=== PATIENT | female | born 1990 | race Caucasian/White ===

== ENCOUNTER 2017-11-02 06:34 | Emergency (ER) | payer SELFPAY ==
[2017-11-02 06:35] VITALS: BP 117/55; PULSE 114; RESP 16; TEMP 36.9; O2SAT 100; BMI 43.1
--- NOTE | 2017-11-02 07:18 | ED.VISSUMM ---
- ER Visit Summary Date of Service: 11/02/17 Chief Complaint: Sore throat History of Present Illness: The patient is a 27 F who sees Baldomero Escalante. She reports that she has a sore throat that began yesterday. The pain is sharp. Is 5 out of 10 when she swallows. Is 2 out of 10 at rest. She denies any fever or chills. She reports that she has had a cough for the past month. Is productive clear sputum. Physical Examination: Vitals: Stable. Afebrile. General: Well-nourished and well-developed. Head: Normocephalic atraumatic. HEENT: Pharyngeal erythema with bilateral tonsillar enlargement and exudate. No peritonsillar abscess. There is but palatal petechiae. She has tender anterior cervical leg adenopathy bilaterally. Cardiovascular: Regular rate and rhythm. No murmurs. Respiratory: No respiratory distress. Clear to auscultation bilaterally. Abdominal: Soft, nontender, nondistended, normal bowel sounds. No guarding, rebound, or peritoneal signs. Back: Nontender. Extremities: Nontender, no edema. Skin: Normal color, no rash. Neurologic: Alert and oriented ?3. Cranial nerves II through XII are intact. Normal strength and sensation. Psych: Normal affect. Emergency Department Course and Treatment: Patient's exam is consistent with strep pharyngitis. I discussed the possibility of a rapid strep test. She would like to be treated regardless of the results of this. Because of this she was just treated empirically. She is given amoxicillin, naproxen, and dexamethasone orally. She is resting comfortably. Treatment Plan: She will be discharged on amoxicillin and naproxen. Instructed to follow-up with Baldomero Escalante in 1 week for repeat exam. Return to the emergency department for any worsening symptoms. Disposition: To home in improved and stable condition. Impression: 1. Pharyngitis, presumed strep. This note was generated with [employer] dictation software. It may contain incorrect words, spelling, and punctuation that were not noted in review of the chart prior to signing ED Disposition - Plan for ED Patient: Chief Complaint: Sore Throat Instructions: ED Strep Pharyngitis Poss Prescriptions: Naproxen [Naprosyn] 500 mg PO BID #20 tablet Amoxicillin 500 mg PO TID #30 tablet Referrals: Lance Escalante PA [Primary Care Provider] - 1 Week if not improving
[2017-11-02] MEDS: Naproxen 250 MG Tablet 500 MG PO (07:45)
[2017-11-02] MEDS: AMOXICILLIN 500 MG CAPSULE PO (07:45)
== END 2017-11-02 07:45 | disposition home or self-care (01) ==
LOC: ED 07:04
PROVIDERS: Emergency Provider Emergency Medicine; Family Provider Physician Assistant; PCP Physician Assistant
DX: J02.9 Acute pharyngitis, unspecified (principal)
CPT/HCPCS: 99283

== ENCOUNTER 2018-06-27 21:07 | Emergency (ER) | payer SELFPAY ==
[2018-06-27 21:08] VITALS: BP 121/73; PULSE 99; RESP 17; TEMP 36.6; O2SAT 97; BMI 44.7
[2018-06-27 22:59] LABS: Mucous, Urine 0 SEEN /hpf (<or=2+)
[2018-06-27 23:03] LABS: Color, Urine Yellow (Yellow); Glucose, Dipstick Normal (Normal); Ketone-Dipstick Negative (Negative); Leukocyte Esterase-Dipstick 500 /ul (Negative); Nitrite-Dipstick Negative (Negative); Occult Blood-Urine 250 /ul (Negative); Protein-Dipstick 100 mg/dl (Negative); Urine Bilirubin Dipstick Negative (Negative); Urine Clarity Sl. Cloudy (Clear); Urine Urobilinogen Normal (Normal)
[2018-06-27 23:10] LABS: White Blood Cells >100 SEEN /hpf (0-5)
[2018-06-27 23:11] LABS: Red Blood Cells-Urine > 100 SEEN /hpf (0-5); Squamous Epithelial Cells - UA 10-25 SEEN /hpf (5-10)
[2018-06-27 23:12] LABS: Bacteria 1+ /hpf (None Seen)
[2018-06-28 00:18] LABS: Bacteria 0 SEEN /hpf (None Seen); Mucous, Urine 0 SEEN /hpf (<or=2+)
[2018-06-28 00:24] LABS: Color, Urine Yellow (Yellow); Glucose, Dipstick Normal (Normal); Ketone-Dipstick Negative (Negative); Leukocyte Esterase-Dipstick 500 /ul (Negative); Nitrite-Dipstick Negative (Negative); Occult Blood-Urine 250 /ul (Negative); Protein-Dipstick 100 mg/dl (Negative); Urine Bilirubin Dipstick Negative (Negative); Urine Clarity Cloudy (Clear); Urine Urobilinogen Normal (Normal); Urine pH 6.5 (5.0 - 8.0)
[2018-06-28 00:57] LABS: Red Blood Cells-Urine 25-50 SEEN /hpf (0-5); Squamous Epithelial Cells - UA 10-25 SEEN /hpf (5-10); White Blood Cells 50-100 SEEN /hpf (0-5)
--- NOTE | 2018-06-28 01:27 | ED.VISSUMM ---
- ER Visit Summary Date of Service: 06/28/18 Chief Complaint: Dysuria, frequency, urgency and hematuria since yesterday History of Present Illness: The patient is a 28 F who presents with urinary symptoms. She states she was treated for a urinary tract infection 1 month ago. She was treated with cephalexin. She states she is sexually active. She is sexually active with one partner. She denies history of STD. She denies vaginal discharge or dyspareunia. She denies fever, chills night sweats. She denies low back pain or flank pain. She does complain of discomfort in the suprapubic region. Please read written note for complete detail Physical Examination: Vital signs noted and unremarkable. BMI 44.8. HEENT is unremarkable. Heart is regular without murmur, gallop or rub. S1 and S2 are normal. Lungs are clear to auscultation with good movement of air bilaterally. Abdomen is remarkable for suprapubic discomfort. There is no CVA tenderness noted. Test Results: Initial UA was contaminated with 25-50 epithelial cells. Second UA was obtained by straight cath and is contaminated as well. Nursing staff informed me that the prep her several times. Emergency Department Course and Treatment: Will obtain UA to confirm urinary tract infection. Since first and second specimen are contaminated raises concerned if she has a bladder infection or not. Her symptoms are consistent. Will treat with Macrobid. If no improvement will need follow-up. Treatment Plan: Macrobid 100 mg twice daily and Pyridium. She received her first dose of Macrobid and was administered Azo in the department prior to discharge Disposition: Discharge to home Impression: Dysuria This note was generated with [employer] dictation software. It may contain incorrect words, spelling, and punctuation that were not noted in review of the chart prior to signing ED Disposition - Plan for ED Patient: Disposition: Home or Assisted Living Chief Complaint: Complaint Instructions: ED Dysuria Uncertain Cause Prescriptions: Nitrofurantoin Macrocrystals [Macrobid] 100 mg PO Q12 #10 capsule Phenazopyridine HCl [Pyridium] 200 mg PO TID #10 tablet Referrals: Lance Escalante PA [Primary Care Provider] - 3-5 Days if not improving Additional Instructions: Your prescription was electronically transmitted to [facility] pharmacy; your preferred pharmacy.
[2018-06-28] MEDS: Phenazopyridine 95 MG Tablet 190 MG PO (01:39)
[2018-06-28] MEDS: Nitrofurantoin Macrocrystals 100 MG Capsule PO (01:39)
[2018-06-28 01:42] VITALS: BP 111/74; PULSE 91; RESP 17; O2SAT 100
--- NOTE | 2018-06-28 01:42 | ED.RN ---
DISCHARGE INSTRUCTIONS GIVEN TO AND REVIEWED WITH PATIENT, PATIENT DENIES QUESTIONS OR CONCERNS AND VOICES UNDERSTANDING OF DISCHARGE INSTRUCTIONS. PT AMBULATES OUT OF ROOM WITHOUT DIFFICULTY.
== END 2018-06-28 01:43 | disposition home or self-care (01) ==
PROVIDERS: Emergency Provider Emergency Medicine; Family Provider Physician Assistant; PCP Physician Assistant
DX: N30.91 Cystitis, unspecified with hematuria (principal); R30.0 Dysuria; E66.9 Obesity, unspecified; Z68.41 Body mass index [BMI] 40.0-44.9, adult; Z87.440 Personal history of urinary (tract) infections
CPT/HCPCS: 81001; 99284; P9612

== ENCOUNTER → 2018-07-26 12:37 | Outpatient (CLI) | payer OTHER, SELFPAY ==
[2018-07-26 13:12] LABS: Absolute Lymphocyte Count 2.79 X10^3/ul (0.83-4.51); Absolute Neutrophil Count 8.5 X10^3/uL (2.0-7.7); Basophil# 0.02 X10^3/uL; Basophil% 0.2 % (0-1); Eosinophil# 0.05 X10^3/uL; Eosinophils% 0.4 % (0-5); Lymphocyte # 2.79 X10^3/ul (4.0); Lymphocyte % 23.8 % (19-41); Mean Corp Hgb Conc 32.4 g/gl (32-36); Mean Corpuscular Hgb 24.8 pg (27.0-32.0); Mean Corpuscular Volume 76.6 fL (81-99); Mean Platelet Vol. 9.1 fl (6.2-12.0); Monocyte# 0.36 X10^3/uL; Monocyte% 3.1 % (0-10); Neutrophil # 8.47 X10^3/uL (2.7-7.7); Neutrophil % 72.2 % (47-70); Platelet Count 316 K/mm3 (150-450); RBC Distribution Width CV 13.5 % (11.6-14.6); RBC Distribution Width SD 37.1 fl (35.1-43.9); Red Blood Count 4.83 M/mm3 (4.2-5.4); White Blood Count 11.7 K/mm3 (4.4-11.0)
[2018-07-26 13:16] LABS: POSITIVE COUNT NO; POSITIVE DIFFERENTIAL NO; POSITIVE MORPHOLOGY NO
[2018-07-26 13:29] LABS: Glucose Challenge Gest 1H 50g 161 mg/dL (70-140)
[2018-07-26 14:24] LABS: HIV - WCH Non-Reactive (Nonreactive); Rubella IgG 106.2 IU/mL
[2018-07-26 19:56] LABS: Chlamydia Trachomatis by PCR Negative (Negative); Neisserai gonorrhoeae by PCR Negative (Negative); Probe Check PASS; Sample Adequacy Control PASS; Specimen Processing Control PASS
[2018-07-27 13:39] LABS: HEPATITIS B SURFACE AG Negative (Negative)
[2018-07-29 13:20] LABS: HPV Reflexed? NOT INDICATED
[2018-07-30 03:50] LABS: Rapid Plasmin Reagin (RPR) NONREACTIVE (NONREACTIVE)
== END ==
PROVIDERS: Family Provider Physician Assistant; PCP Physician Assistant; Referring Provider Nurse Practitioner Women's Health; Visit Provider Nurse Practitioner Women's Health
DX: O09.90 Supervision of high risk pregnancy, unspecified, unspecified trimester (principal); Z12.4 Encounter for screening for malignant neoplasm of cervix; Z3A.00 Weeks of gestation of pregnancy not specified
CPT/HCPCS: 36415; 82950; 85025; 86592; 86703; 86762; 86850; 86900; 87086; 87088; 87340; 87491; 87591; 87624; 88175; G0145

== ENCOUNTER → 2018-07-30 09:58 | Outpatient (CLI) | payer OTHER, SELFPAY ==
[2018-07-30 11:21] LABS: Glucose GTT-Gestation. Fasting 84 mg/dL (<105)
[2018-07-30 12:18] LABS: Glucose GTT-Gestational 1 Hr 175 mg/dL (<190)
[2018-07-30 12:59] LABS: Glucose GTT-Gestational 2 Hr 125 mg/dL (<165)
[2018-07-30 13:55] LABS: Glucose GTT-Gestational 3 Hr 101 L (<145)
== END ==
LOC: LAB 10:00
PROVIDERS: Nurse Practitioner Women's Health; Family Provider Physician Assistant; PCP Physician Assistant; Referring Provider Obstetrics & Gynecology; Visit Provider Obstetrics & Gynecology
DX: O09.90 Supervision of high risk pregnancy, unspecified, unspecified trimester (principal); O99.810 Abnormal glucose complicating pregnancy; Z3A.00 Weeks of gestation of pregnancy not specified
CPT/HCPCS: 36415; 82951; 82952; 86850

== ENCOUNTER → 2018-08-07 14:46 | Outpatient (CLI) | payer OTHER, SELFPAY ==
[2018-08-06 17:24] VITALS: BMI 44.1
[2018-08-07 14:49] LABS: Mucous, Urine 0 SEEN /hpf (<or=2+); Red Blood Cells-Urine 0 SEEN /hpf (0-5)
[2018-08-07 14:57] LABS: Color, Urine Yellow (Yellow); Glucose, Dipstick Normal (Normal); Ketone-Dipstick Negative (Negative); Leukocyte Esterase-Dipstick 500 /ul (Negative); Nitrite-Dipstick Positive (Negative); Occult Blood-Urine 250 /ul (Negative); Protein-Dipstick 100 mg/dl (Negative); Specific Gravity, Urine 1.025 (1.002-1.030); Urine Bilirubin Dipstick Negative (Negative); Urine Clarity Clear (Clear); Urine Urobilinogen Normal (Normal)
[2018-08-07 15:23] LABS: Bacteria 1+ /hpf (None Seen); Squamous Epithelial Cells - UA 0-5 SEEN /hpf (5-10); White Blood Cells 50-100 SEEN /hpf (0-5)
== END ==
PROVIDERS: Family Provider Physician Assistant; PCP Physician Assistant; Referring Provider Physician Assistant Surgical; Visit Provider Physician Assistant Surgical
DX: R30.0 Dysuria (principal)
CPT/HCPCS: 81001; 87077; 87086; 87088; 87186

== ENCOUNTER 2019-01-06 20:54 | Emergency (ER) | payer BC, SELFPAY ==
[2018-08-06 17:24] VITALS: BMI 44.1
[2019-01-06 20:56] VITALS: BP 109/67; PULSE 90; RESP 16; TEMP 36.7; O2SAT 100; BMI 45.1
--- NOTE | 2019-01-06 21:17 | ED.DEP ---
ED Disposition - Plan for ED Patient: Instructions: Vaginal Infection: Yeast (Candidiasis) Prescriptions: Terconazole [Terazol 7] 45 gm VG QHS #1 cream.appl Referrals: Lance Escalante PA [Primary Care Provider] - Octavia Hall MD [STAFF PHYSICIAN] - 5-7 Days
--- NOTE | 2019-01-06 21:19 | ED.VISSUMM ---
- ER Visit Summary Date of Service: 01/06/19 Chief Complaint: [Yeast infection] History of Present Illness: The patient is a 28 F [presents with complaint of symptoms of a yeast infection. Patient is having vaginal discharge x2 days that is creamy and white. Patient having itching and burning sensation. Patient is 31 weeks . Patient is never had a yeast infection before. She denies any fever or recent illness. She denies vaginal bleeding. She denies abdominal pain. Does not have any concerns about STDs as she is monogamous. Patient has had care. Patient will attempt to deliver via as she is had 3 C-sections in the past.] Physical Examination: [HEENT-PERRLA, EOMI. Cranial nerves II through XII grossly intact. TMs clear. Mucous membranes moist. No adenopathy. Cardiovascular-regular rate and rhythm without murmur or ectopy Lungs-clear to auscultation, chest wall stable without crepitus or subcu emphysema Abdomen-normoactive bowel sounds, soft, nontender, no rebound or rigidity, no peritoneal signs. Extremities-intact ?4, normal range of motion, normal pulses, atraumatic] Test Results: [None indicated] Emergency Department Course and Treatment: [Discussed case with Dr. Raudel Montalvo who asked that we start patient on Terazol 7] Treatment Plan: [We will treat with Terazol 7 cream for 7 days ] Disposition: [Discharged home in stable condition ] Impression: [Vaginal candidiasis] This note was generated with [employer] dictation software. It may contain incorrect words, spelling, and punctuation that were not noted in review of the chart prior to signing ED Disposition - Plan for ED Patient: Instructions: Vaginal Infection: Yeast (Candidiasis) Prescriptions: Terconazole [Terazol 7] 45 gm VG QHS #1 cream.appl Referrals: Octavia Hall MD [STAFF PHYSICIAN] - 5-7 Days Lance sEcalante PA [Primary Care Provider] -
== END 2019-01-06 21:31 | disposition home or self-care (01) ==
PROVIDERS: Emergency Provider Emergency Medicine; Family Provider Physician Assistant; PCP Physician Assistant
DX: O98.813 Other maternal infectious and parasitic diseases complicating pregnancy, third trimester (principal); B37.3 Candidiasis of vulva and vagina; Z3A.31 31 weeks gestation of pregnancy
CPT/HCPCS: 99282

== ENCOUNTER 2021-10-10 11:26 | Day surgery (SDC) | payer MEDICAID, SELFPAY ==
[2021-10-09 12:34] LABS: Hematocrit 42.4 % (37-47); Hemoglobin 13.3 g/dL (12.0-15.0); Mean Corp Hgb Conc 31.4 g/dL (32-36); Mean Corpuscular Hgb 25.3 pg (27.0-32.0); Mean Corpuscular Volume 80.6 fL (81-99); Mean Platelet Vol. 9.7 fl (6.2-12.0); Platelet Count 286 K/mm3 (150-450); RBC Distribution Width CV 13.1 % (11.6-14.6); RBC Distribution Width SD 38.2 fl (35.1-43.9); Red Blood Count 5.26 M/mm3 (4.2-5.4)
[2021-10-09 12:39] LABS: Internal QC Validated? YES +Cl - CLEAR BKGD; Pregnancy, Urine Negative Negative
[2021-10-10] VITALS (8 sets, daily range): BP systolic 88–107; BP diastolic 39–85; PULSE 63–72; RESP 16–18; TEMP 36.3–36.6; O2SAT 93–98; BMI 38.9
[2021-10-10] MEDS: Lactated Ringers 1,000 ML 15 ML IV (12:12)
--- NOTE | 2021-10-10 13:10 | EMB_PTH ---
PATIENT: SUMMER BULL LOC: [facility] [place] U#:[id number] AGE/SX: 31/F ROOM: RE10/10/[address]: Dr. Eugenie Lopez DO : 1990 BED: DIS: 10/10/2021 SPEC #: [id number] RECD: 10/10/21 15:29 STATUS: VINEET ERIKA #: [id number] JAVID: 10/10/21 13:[address]: Eugenie Lopez DEPT: SURGICAL PATHOLOGY RECD BY: Lisa Saucedo ENTERED: 10/11/21 11:33 SP TYPE: ENDOLance BX/C KATELYN DR: SAMAN Byrd Tissues: Endometrium, NOS Procedures: Surgery Specimen Level IV HEADER OPERATION: Hysteroscopy, dilation and curettage, Mirena IUD placement PRE-OP DIAGNOSIS: Menorrhagia, cervical stenosis TISSUE SUBMITTED: Endometrial curettings MICROSCOPIC DIAGNOSIS Endometrium, biopsy: Transition endometrium with minimal disorder. AM:arash 10/14/2021 MICROSCOPIC DESCRIPTION Slides are reviewed. GROSS DESCRIPTION Received in fixative is one container labeled with the patient's name and designated endometrial curettings. The specimen consists of multiple irregular fragments of dark renner soft tissue that in aggregate measure 3 x 2 x 0.2 cm. The specimen is totally submitted in one cassette. / AM:arash 10/11/2021 TC:5 CPT: 47646
--- NOTE | 2021-10-10 14:11 | DCINST_ITS ---
Discharge Instructions Diet Discharge Diet: No restrictions Activity Discharge Activity: May Drive (more than 24 hours after surgery) Return to work on:: 10/14/21 May resume sexual activity in: 1-2 weeks Weight Bearing Status: Weight bearing as tolerated Lifting Restrictions: No restrictions Additional Activity Instructions:: No intercourse, tampons, hot tubs, tub baths, pools for 1 week Dressing / Incision Call your doctor if you observe: Fever of 101 or Higher, Coldness, Increased Pain, Numbness or Tingling, Change in Color, Inability to urinate, Inability to have a bowel movement, Using more than 1 pad per hour, Shortness of breath, Dizziness, Fainting spells, Swelling in the ankles, Chest pain, Increased palpitations (irregular heartbeat), Calf discomfort and Uncontrolled pain Follow Up Care Please Follow Up With: Jessica When: 1 week and then 4-6 weeks for IUD check Test Results: Test results from this visit will be discussed in further detail at your follow-up appointment, if applicable. Discharge Plan Admission Primary Reason for Your Visit: surgery Attending Provider: Eugenie Lopez Primary Care Provider: Larissa Burns NP Instructions Patient Instructions: Dilation and Curettage Discharge Orders/Prescriptions Prescriptions: Continued buspirone 5 mg Tablet 5 mg PO BID RF: 0 phentermine [Adipex-P] 37.5 mg Tablet 37.5 mg PO DAILY RF: 0 sertraline [Zoloft] 50 mg Tablet 50 mg PO DAILY RF: 0 Referrals / Follow Up: Larissa Burns NP, RATTLING MACHINE TENDER-C [Primary Care Provider] - Disposition Disposition (needs filled in before D/C Order can be placed): Home, Self Care
--- NOTE | 2021-10-10 14:44 | PCM.OPRPT ---
Problems Associated Problem List Diagnoses (1) Menorrhagia: (2) Cervical stenosis (uterine cervix): Report of Operation Date of Procedure: 10/10/21 Pre-Operative Diagnosis: Menorrhagia, desires IUD, cervical stenosis Post-Operative Diagnosis: As above Surgery/Procedure Performed:: Hysteroscopy, D&C, Mirena IUD placement Description of Surgical Findings:: Uterus sounded to 10 cm. Normal appearing uterine cavity and bilateral tubal ostia visualized. Surgeon: Jessica Type of Anesthesia: MAC Special Medications: None Specimen's removed: Endometrial curettings Drains: None Estimated Blood Loss (mL): < 50 cc Fluids Replaced: See anesthesia record Description of Procedure: The patient was taken to the operating room where MAC anesthesia was found to be adequate. She was prepped and draped in the usual sterile fashion in dorsal position with yellowfin stirrups. A weighted speculum was placed in the vagina to expose the cervix. The anterior lip the cervix was grasped with a single-tooth tenaculum. The cervix was stenotic and serially dilated to accommodate the hysteroscope. The hysteroscope was advanced to the fundus of the uterus and distended with normal saline. A normal-appearing uterine cavity was visualized with normal bilateral tubal ostia. The hysteroscope was then removed. A sharp curettage was performed for a moderate amount of endometrial tissue. The endometrial curettings were sent to pathology for review. Uterus sounded to 10 cm. The Mirena device was placed in usual sterile fashion and the strings were cut to 2 cm in length. All instruments were removed from the vagina. Vaginal sweep was performed. Bleeding was hemostatic. Instrument and sponge counts were correct. Patient was taken recovery room in stable condition. Grafts/Implants Used: Mirena IUD Procedure Start Time: 14:32 Procedure Stop Time: 14:46 Complications None Admit VTE Documentation VTE Mechan Device Prophylaxis: SCD's
== END 2021-10-10 23:59 | disposition home or self-care (01) ==
LOC: SDC 11:28 → AC 11:31
PROVIDERS: Anesthesiology; PCP Registered Nurse; Referring Provider Obstetrics & Gynecology; Visit Provider Obstetrics & Gynecology
PROC: 0UDB8ZZ Extraction of Endometrium, Via Natural or Artificial Opening Endoscopic (ICD-10-PCS; CPT 58558; principal; 2021-10-10 13:00)
DX: N92.0 Excessive and frequent menstruation with regular cycle (principal); F41.9 Anxiety disorder, unspecified; Z79.899 Other long term (current) drug therapy; M48.02 Spinal stenosis, cervical region; Z30.430 Encounter for insertion of intrauterine contraceptive device
CPT/HCPCS: 58558; 58300; 00952; 36415; 81025; 85027; 86850; 86900; 86901; 87426; 88305; C9803; J7120; J2405

== ENCOUNTER 2021-12-21 14:23 | Emergency (ER) | payer MEDICAID, SELFPAY ==
[2021-12-21 14:24] VITALS: BP 133/87; PULSE 93; RESP 18; TEMP 35.8; O2SAT 98; BMI 39.1
--- NOTE | 2021-12-21 14:48 | EX.ED.DYSGE1 ---
HPI History of Present Illness Chief Complaint: Abd Pain Narrative Narrative: 31-year-old female with history of heavy periods presents the emergency department with right-sided flank pain, lower belly pain. Patient states that she started her menstrual cycle 3 days ago, patient states the cramping has been worse than usual. Patient states that this cramping goes around her back down to her thighs. She does have an established DISTRIBUTION ENGINEERING TECHNOLOGIST which she has seen for this, patient has had a vaginal ultrasound 1 month ago that showed a cyst on the left side. Patient states that this pain came on insidiously, denies any nausea or vomiting. Patient states that she does use Midol however this is not effective for her symptoms. Patient denies any dizziness, fever chills nausea or vomiting PFSH PFSH Medical History Anxiety Non-smoker Home Medications buspirone 5 mg PO TID 10/04/21 [History Last Taken 10/10/21 07:00] phentermine [Adipex-P] 37.5 mg PO DAILY 10/04/21 [History Last Taken Unknown] sertraline [Zoloft] 100 mg PO DAILY 10/04/21 [History Last Taken 10/10/21 07:00] doxycycline monohydrate 100 mg PO BID 12/21/21 [History Last Taken Unknown] ibuprofen 800 mg PO Q8H PRN #20 tab 12/21/21 [Rx Last Taken Unknown] Allergy/AdvReac Type Severity Reaction Status Date / Time No Known Allergies Allergy Verified 12/21/21 14:25 Family History (Updated 08/06/18 @ 17:26 by Parisalrry Hernadez) Mother , age 51 Diabetes Enlarged heart Other Heart disease Hypertension Kidney disease Surgical History H/O section Social History (Updated 08/06/18 @ 17:54 by Samuel MUSTAFA, PA) Smoking Status: Never smoker alcohol intake: never ROS ROS ED ROS Narrative Constitutional: Negative for fever, chills, weight loss or gain, weakness Eyes: Negative for vision loss, vision change, double vision ENT: Negative for any hearing changes, ringing in the ears, discharge, pain Nose: Negative for any congestion, runny nose, sinus pain, allergies Throat: Negative for any sore throat, swelling, voice changes, Cardiovascular: Negative for any chest pain, tightness, palpitations, racing heartbeat Respiratory: Negative for any cough, sputum production, hemoptysis, shortness of breath, shortness of breath on exertion, Gastrointestinal: Negative for any nausea, vomiting, diarrhea, constipation, blood in stool, blood in vomit. Positive for abdominal pain, cramping : Negative for any urinary frequency, incontinence, dysuria, retention, blood in urine. Positive for currently on menstrual cycle Muscle skeletal: Negative for any muscle joint pain, stiffness, myalgias, arthralgias, neck pain, back pain Neurological: Negative for any headache, dizziness, syncope, numbness or tingling Skin: Negative for any rashes, lumps, itching, abrasions, lacerations Psychiatric: Negative for any depression, anxiety, stress, suicidal ideation, homicidal ideation Hematologic: Negative for any easy bruising, excessive bruising, easy bleeding Allergies: Negative for any eczema, hives, rash EXAM Physical Exam Const Vital Signs: 12/21/21 14:24 Temperature 96.4 F L Temperature Source Temporal Pulse Rate 93 Respiratory Rate 18 Blood Pressure 133/87 H Blood Pressure Mean 102 Pulse Ox 98 Oxygen Delivery Method Room Air Positive well nourished and well developed General Appearance ED: well developed HEENT Negative for tenderness Eyes PERRL and EOMs intact bilaterally Neck no lymphadenopathy and supple Chest Wall inspection of chest normal and palpation of chest normal Resp normal respiratory effort and clear to auscultation bilaterally Cardio regular rate, regular rhythm and no murmurs GI normal to inspection, nondistended, normoactive bowel sounds, non-tender and non-distended Auscultation: normoactive bowel sounds Palpation: soft Back/Spine no CVA tenderness Extremity normal to inspection Neuro oriented x3 and CN's II-XII intact bilaterally Sensorium / Orientation: alert Motor Exam: strength 5/5 throughout Psych mental status grossly normal Skin no rashes or lesions noted MDM MDM MDM Narrative Medical decision making narrative: Patient appears well, patient appears nontoxic, vital signs are stable. Patient presents the emerge department for 3 days of generalized abdominal cramping secondary to her menstrual cycle. Patient did receive a basic work-up, patient's CBC shows a leukocytosis with a white blood count 15.2 however this is kind of baseline for the patient she always seem to have a white blood count. Patient's BMP was unremarkable, patient is not . Patient's urinalysis does show blood however this is consistent with a menstrual cycle. Patient did have relief with IV Toradol. Patient be given ibuprofen 800 for severe pain instructed to follow-up outpatient. Patient does have a established DISTRIBUTION ENGINEERING TECHNOLOGIST she will follow up with. She is instructed to return for any worsening abdominal pain, fever chills nausea vomiting. Patient stable for discharge per Lab Data Attestation: I reviewed the patient's lab results. Labs: Laboratory Results - last 24 hr 12/21/21 12/21/21 12/21/21 14:56 14:56 14:56 WBC 15.2 H RBC 5.04 Hgb 12.9 Hct 40.3 MCV 80.0 L MCH 25.6 L MCHC 32.0 RDW Std Deviation 36.8 RDW Coeff of Azeb 13.0 Plt Count 288 MPV 9.3 Immature Gran % (Auto) 0.300 Neut % (Auto) 76.1 H Lymph % (Auto) 19.2 [place] % (Auto) 3.7 Eos % (Auto) 0.4 Baso % (Auto) 0.3 Absolute Neuts (auto) 11.5 H Absolute Lymphs (auto) 2.91 Nucleated RBC % 0 Sodium 138 Potassium 3.7 Chloride 108 H Carbon Dioxide 24.0 Anion Gap 6 BUN 10 Creatinine 0.56 Estim Creat Clear Calc 111.85 Est GFR (MDRD) Af Amer 163 Est GFR (MDRD) Non-Af 135 BUN/Creatinine Ratio 17.8 Glucose 105 Calcium 9.0 Serum , Qual NEGATIVE Urine Color Urine Clarity Urine pH Ur Specific Delta Urine Protein Urine Glucose (UA) Urine Ketones Urine Occult Blood Urine Nitrite Urine Bilirubin Urine Urobilinogen Ur Leukocyte Esterase Urine RBC Urine WBC Ur Squamous Epith Cells Urine Bacteria Urine Mucus 12/21/21 15:10 WBC RBC Hgb Hct MCV MCH MCHC RDW Std Deviation RDW Coeff of Azeb Plt Count MPV Immature Gran % (Auto) Neut % (Auto) Lymph % (Auto) [place] % (Auto) Eos % (Auto) Baso % (Auto) Absolute Neuts (auto) Absolute Lymphs (auto) Nucleated RBC % Sodium Potassium Chloride Carbon Dioxide Anion Gap BUN Creatinine Estim Creat Clear Calc Est GFR (MDRD) Af Amer Est GFR (MDRD) Non-Af BUN/Creatinine Ratio Glucose Calcium Serum , Qual Urine Color Yellow Urine Clarity Sl. Cloudy Urine pH 6.5 Ur Specific Delta 1.015 Urine Protein 30 H Urine Glucose (UA) Normal Urine Ketones Negative Urine Occult Blood 250 H Urine Nitrite Negative Urine Bilirubin Negative Urine Urobilinogen Normal Ur Leukocyte Esterase 25 H Urine RBC 10-25 SEEN Urine WBC 0-5 SEEN Ur Squamous Epith Cells 0-5 SEEN Urine Bacteria RARE Urine Mucus 0 SEEN Discharge Plan Triage Chief Complaint: Abd Pain ED Midlevel Provider: Ray Contreras ED Provider: Manjinder De Los Santos Dx/Rx/DC Orders Clinical Impression: Menorrhagia Instructions: ED Dysfunctional Uterine Bleeding, ED Heavy Menstrual Bleeding Prescriptions: New ibuprofen 800 mg tablet 800 mg PO Q8H PRN (Reason: pain) Qty: 20 RF: 0 No Action buspirone 5 mg Tablet 5 mg PO TID RF: 0 phentermine [Adipex-P] 37.5 mg Tablet 37.5 mg PO DAILY RF: 0 sertraline [Zoloft] 50 mg Tablet 100 mg PO DAILY RF: 0 doxycycline monohydrate 100 mg capsule 100 mg PO BID RF: 0 Primary Care Provider: Larissa Burns NP Referrals: Larissa Burns NP, KNOCKDOWN WORKER-C [Primary Care Provider] - Activity Restrictions/Additional Instructions: Please use the ibuprofen as needed, please follow-up with your DISTRIBUTION ENGINEERING TECHNOLOGIST, please return here for any worsening symptoms Print Language: Romansh Disposition Disposition: Home, Self Care
[2021-12-21] MEDS: Ketorolac 15 MG/ML Vial IV (15:09)
[2021-12-21 15:15] LABS: Absolute Lymphocyte Count 2.91 X10^3/uL (0.83-4.51); Absolute Neutrophil Count 11.5 X10^3/uL (2.0-7.7); Basophil# 0.05 X10^3/uL; Basophil% 0.3 % (0-1); Eosinophil# 0.06 X10^3/uL; Eosinophils% 0.4 % (0-5); Hematocrit 40.3 % (37-47); Hemoglobin 12.9 g/dL (12.0-15.0); Lymphocyte # 2.91 X10^3/ul (0.83-4.51); Lymphocyte % 19.2 % (19-41); Mean Corpuscular Hgb 25.6 pg (27.0-32.0); Mean Platelet Vol. 9.3 fl (6.2-12.0); Monocyte# 0.56 X10^3/uL; Monocyte% 3.7 % (0-10); NRBC Flagged by Analyzer 0 % (0-5); Neutrophil # 11.52 X10^3/uL (2.7-7.7); Neutrophil % 76.1 % (47-70); Platelet Count 288 K/mm3 (150-450); RBC Distribution Width SD 36.8 fl (35.1-43.9); Red Blood Count 5.04 M/mm3 (4.2-5.4); White Blood Count 15.2 K/mm3 (4.4-11.0)
[2021-12-21 15:16] LABS: Mucous, Urine 0 SEEN /hpf (<or=2+)
[2021-12-21 15:29] LABS: Color, Urine Yellow (Yellow); Glucose, Dipstick Normal (Normal); Ketone-Dipstick Negative (Negative); Leukocyte Esterase-Dipstick 25 /ul (Negative); Nitrite-Dipstick Negative (Negative); Occult Blood-Urine 250 /ul (Negative); Protein-Dipstick 30 mg/dl (Negative); Specific Gravity, Urine 1.015 (1.002-1.030); Urine Bilirubin Dipstick Negative (Negative); Urine Clarity Sl. Cloudy (Clear); Urine Urobilinogen Normal (Normal); Urine pH 6.5 (5.0 - 8.0)
[2021-12-21 15:39] LABS: White Blood Cells 0-5 SEEN /hpf (0-5)
[2021-12-21 15:39] LABS: Internal QC Validated? YES +Cl - CLEAR BKGD; Pregnancy, Serum, hCG Quali. NEGATIVE Negative
[2021-12-21 15:40] LABS: Bacteria RARE /hpf (None Seen); Red Blood Cells-Urine 10-25 SEEN /hpf (0-5); Squamous Epithelial Cells - UA 0-5 SEEN /hpf (5-10)
[2021-12-21 15:40] LABS: Anion Gap 6 (5-15); BUN 10 mg/dL (7-18); BUN/Creat Ratio 17.8 RATIO (10-20); Chloride 108 mmol/L (98-107); Creatinine, Serum 0.56 mg/dL (0.55-1.02); EST Glomerular Filtration Rate 135 mL/min (>60); Est Glom Filt Rate - Afr Amer 163 mL/min (>60); Estimated Creatinine Clearance 111.85 ml/min; Glucose 105 mg/dL (74-106); Potassium 3.7 mmol/L (3.5-5.1); Sodium Level 138 mmol/L (136-145)
[2021-12-21 16:27] VITALS: PULSE 78; RESP 16; O2SAT 97
== END 2021-12-21 16:28 | disposition home or self-care (01) ==
PROVIDERS: Nurse Practitioner; Emergency Provider Emergency Medicine; PCP Registered Nurse; Visit Provider Emergency Medicine
DX: N92.0 Excessive and frequent menstruation with regular cycle (principal); R10.84 Generalized abdominal pain; F41.9 Anxiety disorder, unspecified; Z79.899 Other long term (current) drug therapy
CPT/HCPCS: 80048; 81001; 84703; 85025; 96374; 99283; A4216

== ENCOUNTER 2022-07-10 23:58 | Emergency (ER) | payer BC, MEDICAID, SELFPAY ==
[2022-07-10 23:59] VITALS: BP 111/67; PULSE 80; RESP 18; TEMP 36.7; O2SAT 98; BMI 40.6
[2022-07-11] MEDS: predniSONE 20 MG Tablet 60 MG PO (00:41)
--- NOTE | 2022-07-11 01:54 | EDS_ITS ---
HPI History of Present Illness Chief Complaint: Sore Throat Narrative Narrative: Patient is a 32-year-old female with past medical history of anxiety. She states that at work there has been a few people out secondary to COVID. She states yesterday she has noticed a sore throat and today she has had some congestion and headache. She states she is concerned she may have developed COVID or possible strep throat because of the symptoms and therefore comes in for evaluation. PFSH PFSH Medical History Anxiety Non-smoker Home Medications buspirone 5 mg tablet 5 mg PO TID 10/04/21 [History Last Taken 10/10/21 07:00] phentermine 37.5 mg tablet (Adipex-P) 37.5 mg PO DAILY 10/04/21 [History Last Taken Unknown] azelastine 137 mcg (0.1 %) nasal spray aerosol 2 spray intranasal BID #30 mL 07/11/22 [Rx Last Taken Unknown] omeprazole 40 mg capsule,delayed release 40 mg PO DAILY 07/11/22 [History Last Taken Unknown] prednisone 20 mg tablet 40 mg PO DAILY 5 days #10 tabs 07/11/22 [Rx Last Taken Unknown] Allergy/AdvReac Type Severity Reaction Status Date / Time bupivacaine Allergy Rash Verified 07/11/22 00:03 bupropion [From Wellbutrin] Allergy Rash Verified 07/11/22 00:02 Family History (Updated 08/06/18 @ 17:26 by Paris Hernadez) Mother , age 51 Diabetes Enlarged heart Other Heart disease Hypertension Kidney disease Surgical History H/O section Social History (Updated 08/06/18 @ 17:54 by Samuel MUSTAFA, PA) Smoking Status: Never smoker alcohol intake: never ROS ROS ED Constitutional Constitutional ED: Denies chills or fever(s) ENT ENT ED: Reports rhinorrhea and sore throat Cardiovascular Cardiovascular: Denies chest pain Respiratory/Chest Respiratory/Chest: Denies cough or dyspnea Gastrointestinal Gastrointestinal: Denies abdominal pain, diarrhea, nausea or vomiting Genitourinary Genitourinary ED: Denies dysuria Musculoskeletal Musculoskeletal: Denies myalgias Integumentary Denies rash Neurologic Neurologic: Reports headache(s) Psychiatric Psychiatric: Reports anxiety Hematologic/Lymphatic Hematologic/Lymphatic: Denies easy bleeding or easy bruising EXAM Physical Exam Const Vital Signs: 07/10/22 23:59 Temperature 98.0 F Temperature Source Temporal Pulse Rate 80 Respiratory Rate 18 Blood Pressure 111/67 Blood Pressure Mean 81 Pulse Ox 98 Oxygen Delivery Method Room Air Positive well nourished and well developed General Appearance ED: well developed HEENT Reports moist mucous membranes HEENT Narrative: Bilateral TMs are retracted left greater than right without secondary changes to suggest infection. Nasal mucosa is hyperemic and boggy with enlarged inferior nasal turbinate. There is cobblestoning in the posterior pharynx consistent with sinus drainage but no tonsil hypertrophy no exudates trismus change in voice or difficulty with secretions. Eyes PERRL and EOMs intact bilaterally Neck supple Neck Narrative: Positive anterior cervical lymphadenopathy Resp normal respiratory effort and clear to auscultation bilaterally Cardio regular rate and regular rhythm Extremity normal to inspection Neuro oriented x3 and CN's II-XII intact bilaterally Sensorium / Orientation: alert Psych mental status grossly normal Skin no rashes or lesions noted MDM MDM MDM Narrative Medical decision making narrative: Patient presented to the ER afebrile. Her symptoms are consistent with viral illness and with reported COVID exposure at work there is concern for this so COVID influenza and strep were obtained. As she did not have signs of systemic infection or peritonsillar abscess I felt no need for further work-up. Patient is strep swab was negative as well as her COVID and influenza swab indicating she has another viral infection causing her symptoms. She is not in respiratory distress she is not hypoxic and she does not have signs of peritonsillar abscess so therefore she be given symptomatic care and discharged home. Discharge Plan Triage Chief Complaint: Sore Throat ED Provider: Darryl Fuller Dx/Rx/DC Orders Clinical Impression: Upper respiratory infection, Pharyngitis Instructions: ED Pharyngitis, Viral, ED URI, Viral, No Abx (Adult) Prescriptions: New azelastine 137 mcg (0.1 %) aerosol,spray 2 spray intranasal BID Qty: 30 0RF Rx Instructions: administer into each nostril prednisone 20 mg tablet 40 mg PO DAILY 5 Days Qty: 10 0RF No Action buspirone 5 mg Tablet 5 mg PO TID phentermine [Adipex-P] 37.5 mg Tablet 37.5 mg PO DAILY omeprazole 40 mg Capsule,Delayed Release(Dr/Ec) 40 mg PO DAILY Stand Alone Forms: ED Work / School Excuse Primary Care Provider: Larissa Burns NP Referrals: Larissa Burns NP, PROCESS MACHINE OPERATOR-C [Primary Care Provider] - Disposition Disposition: Home, Self Care Discharge Date/Time: 07/11/22 02:04
== END 2022-07-11 02:04 | disposition home or self-care (01) ==
PROVIDERS: Emergency Provider Emergency Medicine; PCP Registered Nurse; Visit Provider Emergency Medicine
DX: J06.9 Acute upper respiratory infection, unspecified (principal); F41.9 Anxiety disorder, unspecified; Z79.52 Long term (current) use of systemic steroids; Z20.822 Contact with and (suspected) exposure to COVID-19
CPT/HCPCS: 87428; 87880; 99282

== ENCOUNTER 2023-09-07 09:07 | Emergency (ER) | payer MEDICAID, SELFPAY ==
[2023-09-07 09:08] VITALS: BP 115/96; PULSE 86; RESP 14; TEMP 36.8; O2SAT 98; BMI 44.0
--- NOTE | 2023-09-07 09:15 | RAD_ITS ---
STUDY: X-RAY - LEFT KNEE REASON FOR EXAM: Female, 33 years old. Trauma TECHNIQUE: 4 view(s) of the knee. COMPARISON: None. FINDINGS: Normal visualized distal femur. Normal visualized proximal tibia and fibula. Normal proximal tibiofibular articulation. Normal medial femorotibial compartment. Normal lateral femorotibial compartment. Normal patellofemoral articulation. Soft tissue swelling. RAD/Knee 4 or More Views IMPRESSION: Soft tissue swelling. Electronically Signed: Jose Elias Hall MD at 10:07 EST ,
--- NOTE | 2023-09-07 09:23 | ED.VIS.LOWEX ---
HPI History of Present Illness HPI Narrative: 33-year-old female history of anxiety and depression. Fell to bed about 9:00 last night hitting her left anterior knee on a wooden floor. Complaining of discomfort. No prior history. No prior knee surgery. Denies any other injuries. Chief Complaint: Lower Extremity Injury Informant: patient Occured/Mechanism Mechanism/Context: Yes injury and Yes blunt trauma Onset/Context/Timing Onset: Yesterday Context: Sudden Onset Timing: Continuous Quality of Pain: Dull and Aching Current Severity: Mild Maximum Severity: Mild Associated Symptoms Associated Symptoms: Negative for Parasthesia, Weakness or Loss of Funtion Narrative Narrative: 33-year-old fell to bed last night injuring her left knee versus a wooden floor. Able to walk. Prior similar symptoms: No Recent Illness/Hospitalization: No PFSH PFSH Medical History Anxiety Non-smoker Home Medications buspirone 5 mg tablet 5 mg PO TID 10/04/21 [History Last Taken 10/10/21 07:00] azelastine 137 mcg (0.1 %) nasal spray aerosol 2 spray intranasal BID #30 mL 07/11/22 [Rx Last Taken Unknown] omeprazole 40 mg capsule,delayed release 40 mg PO DAILY 07/11/22 [History Last Taken Unknown] ascorbic acid (vitamin C) 500 mg tablet (Vitamin C With Chelsea Hips) 500 mg PO DAILY 09/07/23 [History Last Taken Unknown] cholecalciferol (vitamin D3) 1,250 mcg (50,000 unit) capsule 1,250 mcg PO DAILY 09/07/23 [History Last Taken Unknown] ferrous sulfate 325 mg (65 mg iron) tablet 325 mg PO DAILY 09/07/23 [History Last Taken Unknown] fluoxetine 40 mg capsule 40 mg PO DAILY 09/07/23 [History Last Taken Unknown] Allergy/AdvReac Type Severity Reaction Status Date / Time bupivacaine Allergy Rash Verified 09/07/23 09:08 bupropion [From Wellbutrin] Allergy Rash Verified 09/07/23 09:08 Family History Mother , age 51 Diabetes Enlarged heart Other Heart disease Hypertension Kidney disease Surgical History H/O section Social History Smoking Status: Never smoker alcohol intake: never ROS ROS ED ROS Narrative Denies recent illness. Review of Systems ROS Unobtainable: Denies due to encephalopathy Constitutional Constitutional ED: Denies chills or fever(s) Eyes Eyes: Denies blurry vision ENT ENT ED: Denies ear pain Cardiovascular Cardiovascular: Denies chest pain or palpitations Respiratory/Chest Respiratory/Chest: Denies cough or dyspnea Gastrointestinal Gastrointestinal: Denies abdominal pain Genitourinary Genitourinary ED: Denies dysuria or hematuria Musculoskeletal Musculoskeletal: Denies arthralgias Integumentary Denies abscess or Abrasions Neurologic Neurologic: Denies headache(s) Psychiatric Psychiatric: Denies anxiety or depression Endocrine Endocrinology: Denies polydipsia or polyphagia Hematologic/Lymphatic Hematologic/Lymphatic: Denies easy bleeding or easy bruising Allergic/Immunologic Allergic/Immunologic ED: Denies mouth swelling or tongue swelling EXAM Physical Exam Narrative Exam Narrative: 33-year-old female vital signs stable afebrile. H EENT exam unremarkable. Nontender. Atraumatic. Pupils round react to light. Neck nontender. Back and spine nontender. Lungs clear equal symmetrical. Heart regular rhythm rate about 80 no murmur. Chest wall and ribs nontender. Abdomen soft nontender. No temperature imaging nontender. 5 and 5 promotional model strength. Normal range of motion. Right lower extremity unremarkable and nontender with normal range of motion. Left knee has mild tenderness. No significant swelling. Tendons and ligaments are intact. Limited extension due to discomfort. Dorsi and plantarflexion intact of the left foot and ankle. Neurologically she is awake and alert with no focal motor deficits. Const Vital Signs: 09/07/23 09:08 Temperature 98.2 F Temperature Source Temporal Pulse Rate 86 Respiratory Rate 14 Blood Pressure 115/96 H Blood Pressure Mean 102 Pulse Ox 98 Oxygen Delivery Method Room Air Positive well nourished and well developed; Negative for cachectic, contractures or unkempt General Appearance ED: well developed and NAD; Negative for unkempt, cachectic or contractures Nutritional Appearance: Negative for cachectic HEENT Reports moist mucous membranes normocephalic and atraumatic; Negative for trauma or tenderness Eyes PERRL General Eye ED: Negative for other Neck full ROM and supple Thyroid: Negative for tender Lymph Lymphatic: Negative for other Chest Wall inspection of chest normal and palpation of chest normal Chest: Negative for other Resp normal respiratory effort, no retractions and clear to auscultation bilaterally Effort and Inspection: Negative for pain with movement Auscultation: Negative for rales, rhonchi or wheezes Cardio regular rate, regular rhythm, S1 normal heart sound, S2 normal heart sound and no murmurs Rate: Negative for bradycardia or tachycardic Rhythm: Negative for abnormal rhythm Bruits: Negative for other GI non-tender, non-distended and no masses Inspection: Negative for abdominal distention Auscultation: normoactive bowel sounds Palpation: soft; Negative for tender or guarding Bladder / Kidney Exam: No other Back/Spine no CVA tenderness General Back: Negative for CVA tenderness Cervical Spine: Negative for cervical spine tenderness Thoracic Spine / Upper Back: Negative for thoracic spinal tenderness Lumbar Spine / Lower Back: Negative for lumbar spinal tenderness Extremity Negative for normal to inspection or full ROM Extremity Narrative: Left knee mild tenderness. Limited extension due to discomfort. Able to do flexion. No gross bony deformity. No effusion. Mild anterior patellar tenderness. Ligaments intact. No effusion. General Extremety ED: Negative for cyanosis or edema General Extremity: Negative for cyanosis or edema Neuro oriented x3, CN's II-XII intact bilaterally and moves all extremities Sensorium / Orientation: alert, oriented to person, oriented to place and oriented to time; Negative for orientation impaired, confused, lethargic or stuporous Motor Exam: strength 5/5 throughout Psych mental status grossly normal Appearance: Negative for unkempt Speech: No other Mood & Affect: Negative for anxious Skin no wounds Lesions: no lesions Rashes: no rashes Trauma: Negative for abrasion or laceration MDM MDM Radiography Diagnostic Testing: Left knee x-ray, 4 views, interpreted by myself shows no acute abnormality. No fracture. No dislocation. No significant effusion. No significant soft tissue swelling. Discharge Plan Triage Chief Complaint: Lower Extremity Injury ED Provider: Manjinder De Los Santos Dx/Rx/DC Orders Clinical Impression: Fall, Contusion of left knee Instructions: ED Soft Tissue Contusion Prescriptions: No Action buspirone 5 mg Tablet 5 mg PO TID phentermine [Adipex-P] 37.5 mg Tablet 37.5 mg PO DAILY omeprazole 40 mg Capsule,Delayed Release(Dr/Ec) 40 mg PO DAILY azelastine 137 mcg (0.1 %) aerosol,spray 2 spray intranasal BID Qty: 30 0RF Rx Instructions: administer into each nostril prednisone 20 mg tablet 40 mg PO DAILY 5 Days Qty: 10 0RF Primary Care Provider: Larissa Burns NP Referrals: Larissa Burns NP, WAREHOUSE TEAM MEMBER-C [Primary Care Provider] - 1 Week if not improving Activity Restrictions/Additional Instructions: Ice your knee to decrease pain and swelling. Motrin for pain and swelling. Tylenol for pain. This should progressively improve if not follow-up to reexamine. Your x-rays were normal. Disposition Disposition: Home, Self Care
== END 2023-09-07 09:50 | disposition home or self-care (01) ==
LOC: ED 09:48
PROVIDERS: Emergency Provider Emergency Medicine; PCP Registered Nurse; Visit Provider Emergency Medicine
DX: S80.02XA Contusion of left knee, initial encounter (principal); F41.9 Anxiety disorder, unspecified; W06.XXXA Fall from bed, initial encounter; Z79.899 Other long term (current) drug therapy
CPT/HCPCS: 73564; 99282

== ENCOUNTER 2023-12-06 10:26 | Emergency (ER) | payer MEDICAID, SELFPAY ==
[2023-12-06 10:28] VITALS: BP 94/60; PULSE 103; RESP 18; TEMP 37.2; O2SAT 98; BMI 37.5
[2023-12-06 10:29] VITALS: PULSE 105
--- NOTE | 2023-12-06 11:00 | EDS_ITS ---
HPI History of Present Illness Chief Complaint: Ear Problem Informant: patient Narrative Narrative: 33-year-old female presenting to the emergency room with the chief complaint of earache and sore throat. Patient notes over the past several days she has developed fevers and rhinorrhea/congestion left ear pain and sore throat. She notes some associated nausea and decreased p.o. intake. Patient notes that she had a gastric sleeve placed in September. She took NyQuil like medicine last night for the fever. She notes some body aches. No diarrhea. Daughter was sick with strep throat about a week ago. She denies any rashes. Patient is concerned with dehydration. [facility] Medical History Anxiety Non-smoker Home Medications buspirone 5 mg tablet 5 mg PO TID 10/04/21 [History Last Taken 10/10/21 07:00] azelastine 137 mcg (0.1 %) nasal spray aerosol 2 spray intranasal BID #30 mL 07/11/22 [Rx Last Taken Unknown] omeprazole 40 mg capsule,delayed release 40 mg PO DAILY 07/11/22 [History Last Taken Unknown] ascorbic acid (vitamin C) 500 mg tablet (Vitamin C With Chelsea Hips) 500 mg PO DAILY 09/07/23 [History Last Taken Unknown] cholecalciferol (vitamin D3) 1,250 mcg (50,000 unit) capsule 1,250 mcg PO DAILY 09/07/23 [History Last Taken Unknown] ferrous sulfate 325 mg (65 mg iron) tablet 325 mg PO DAILY 09/07/23 [History Last Taken Unknown] fluoxetine 40 mg capsule 40 mg PO DAILY 09/07/23 [History Last Taken Unknown] amoxicillin 875 mg-potassium clavulanate 125 mg tablet 1 tab PO BID #20 tabs 12/06/23 [Rx Last Taken Unknown] Allergy/AdvReac Type Severity Reaction Status Date / Time bupivacaine Allergy Rash Verified 12/06/23 10:27 bupropion [From Wellbutrin] Allergy Rash Verified 12/06/23 10:27 Family History Mother , age 51 Diabetes Enlarged heart Other Heart disease Hypertension Kidney disease Surgical History H/O section Social History Smoking Status: Never smoker alcohol intake: never ROS ROS ED ROS Narrative Lightheadedness Constitutional Constitutional ED: Reports chills and fever(s); Denies weight loss Eyes Eyes: Denies change in vision or diplopia ENT ENT ED: Reports ear pain, rhinorrhea and sore throat Cardiovascular Cardiovascular: Denies chest pain, orthopnea, palpitations or racing heartbeat Respiratory/Chest Respiratory/Chest: Reports cough; Denies dyspnea or orthopnea Gastrointestinal Gastrointestinal: Reports nausea; Denies abdominal pain, diarrhea or vomiting Genitourinary Genitourinary ED: Denies dysuria, hematuria or urinary frequency Musculoskeletal Musculoskeletal: Denies arthralgias or myalgias Integumentary Denies abscess or rash Neurologic Neurologic: Denies headache(s) or weakness Psychiatric Psychiatric: Denies anxiety, depression, suicidal ideation or suicidal thoughts Endocrine Endocrinology: Denies polydipsia, polyphagia or polyuria Allergic/Immunologic Allergic/Immunologic ED: Denies mouth swelling, tongue swelling or urticaria EXAM Physical Exam Const Vital Signs: 12/06/23 10:28 12/06/23 10:29 Temperature 99 F Temperature Source Temporal Pulse Rate 103 H 105 H Respiratory Rate 18 Blood Pressure 94/60 Blood Pressure Mean 71 Pulse Ox 98 Oxygen Delivery Method Room Air Positive well nourished and well developed General Appearance ED: well developed HEENT Reports normocephalic, head/scalp atraumatic and moist mucous membranes HEENT Narrative: Right tympanic membrane appears normal. Left tympanic membrane is erythematous with loss of landmarks/bulging. No evidence of perforation. Oropharyngeal exam demonstrates no significant swelling exudate petechiae or erythema. No evidence of retropharyngeal or peritonsillar abscess. No significant anterior or posterior lymphadenopathy. Voice appears normal. Mild turbinate edema with yossi ar rhinorrhea. Eyes PERRL and EOMs intact bilaterally Neck no lymphadenopathy, supple and no JVD Resp normal respiratory effort and clear to auscultation bilaterally Cardio regular rate, regular rhythm and no murmurs Rate: tachycardic GI normal to inspection, nondistended, normoactive bowel sounds and non-tender Palpation: soft Back/Spine no CVA tenderness and normal ROM Extremity normal to inspection General Extremety ED: Negative for edema General Extremity: Negative for edema Neuro oriented x3 and CN's II-XII intact bilaterally Sensorium / Orientation: alert Motor Exam: strength 5/5 throughout Psych mental status grossly normal Mood & Affect: Negative for depressed or tearful Skin no rashes or lesions noted and no wounds MDM MDM MDM Narrative Medical decision making narrative: Patient received IV fluids and Zofran. I spoke with the patient regarding viral testing as well as strep testing. As she is going to be placed on antibiotics for the ear infection we are going to forego strep testing as the same antibiotic will treat both. Viral testing will not change treatment plan and she understands that antibiotic will not affect a viral illness. Patient is clinically looking well. Would recommend continued fever control and oral hydra tion. Will start her on Augmentin. Return if any worsening or concerns. History & Record Review Discussion w/independent historian: Patient Discharge Plan Triage Chief Complaint: Ear Problem ED Provider: Chidi Pugh Dx/Rx/DC Orders Clinical Impression: Acute left otitis media, Acute dehydration, Acute febrile illness Instructions: ED Otitis Media Adult Prescriptions: New amoxicillin-pot clavulanate 875-125 mg tablet 1 tab PO BID Qty: 20 0RF No Action buspirone 5 mg Tablet 5 mg PO TID omeprazole 40 mg Capsule,Delayed Release(Dr/Ec) 40 mg PO DAILY azelastine 137 mcg (0.1 %) aerosol,spray 2 spray intranasal BID Qty: 30 0RF Rx Instructions: administer into each nostril ascorbic acid (vitamin C) [Vitamin C With Chelsea Hips] 500 mg tablet 500 mg PO DAILY cholecalciferol (vitamin D3) 1,250 mcg (50,000 unit) capsule 1,250 mcg PO DAILY ferrous sulfate 325 mg (65 mg iron) tablet 325 mg PO DAILY fluoxetine 40 mg capsule 40 mg PO DAILY Primary Care Provider: Larissa Burns NP Referrals: Larissa Burns NP, BOX BLANK MACHINE OPERATOR-C [Primary Care Provider] - As Needed Disposition Disposition: Home, Self Care
[2023-12-06] MEDS: 0.9% Normal Saline (1000mL) 1,000 ML 999 ML IV (11:22)
[2023-12-06] MEDS: Ondansetron 4 MG/2 ML Vial IV (11:22)
[2023-12-06] MEDS: Acetaminophen 500 MG Tablet 1000 MG PO (11:22)
[2023-12-06 12:39] VITALS: BP 128/76; PULSE 99; RESP 18; TEMP 37.2; O2SAT 99
== END 2023-12-06 12:40 | disposition home or self-care (01) ==
LOC: ED 11:28
PROVIDERS: Emergency Provider Emergency Medicine; PCP Registered Nurse; Visit Provider Emergency Medicine
DX: H66.92 Otitis media, unspecified, left ear (principal); E86.0 Dehydration; J02.9 Acute pharyngitis, unspecified; F41.9 Anxiety disorder, unspecified; Z79.899 Other long term (current) drug therapy; Z98.84 Bariatric surgery status
CPT/HCPCS: 96361; 96374; 99283; J7030; A4216; J2405

== ENCOUNTER 2024-05-19 20:32 | Emergency (ER) | payer MEDICAID, SELFPAY ==
[2024-05-19 20:33] VITALS: BP 105/62; PULSE 76; RESP 16; TEMP 37; O2SAT 97
--- NOTE | 2024-05-19 21:27 | EX.ED.DYSGE1 ---
HPI History of Present Illness Chief Complaint: Foreign Body Informant: patient and spouse/S.O. Narrative Narrative: 33-year-old female who was eating steak tonight and one of the pieces of meat was stuck in her esophagus and she was unable to swallow it. She was spitting up and dry heaving. She came here and while waiting to be seen she feels like it moved. It was stuck there for about 45 minutes. Now she feels better. She denies any choking or dyspnea. She states she had this happen 1 other time about a year ago and she had an EGD that was presumably unremarkable. States she had a gastric sleeve surgery remotely. PFSH PFSH Medical History Anxiety Non-smoker Home Medications ?Medication ?Instructions ?Recorded ?Last Taken ?Type buspirone 5 mg tablet 5 mg PO TID 10/04/21 10/10/21 07:00 History azelastine 137 mcg (0.1 %) nasal 2 spray intranasal BID #30 mL 07/11/22 Unknown Rx spray ascorbic acid (vitamin C) 500 mg 500 mg PO DAILY 09/07/23 Unknown History tablet (Vitamin C With Chelsea Hips) cholecalciferol (vitamin D3) 1,250 1,250 mcg PO DAILY 09/07/23 Unknown History mcg (50,000 unit) capsule ferrous sulfate 325 mg (65 mg 325 mg PO DAILY 09/07/23 Unknown History iron) tablet fluoxetine 40 mg capsule 40 mg PO DAILY 09/07/23 Unknown History pantoprazole 40 mg tablet,delayed 40 mg PO DAILY #14 tabs 05/19/24 Unknown Rx release Allergy/AdvReac Type Severity Reaction Status Date / Time bupivacaine Allergy Rash Verified 12/06/23 10:27 bupropion (From Wellbutrin) Allergy Rash Verified 12/06/23 10:27 Family History Mother , age 51 Diabetes Enlarged heart Other Heart disease Hypertension Kidney disease Surgical History (Updated 05/19/24 @ 20:37 by Camille Gutierres) H/O: hysterectomy S/P gastric sleeve procedure H/O section Social History Smoking Status: Never smoker alcohol intake: never ROS ROS ED Constitutional Constitutional ED: Denies chills or fever(s) Eyes Eyes: Denies change in vision or diplopia ENT ENT ED: Denies rhinorrhea or sore throat Cardiovascular Cardiovascular: Denies chest pain or palpitations Respiratory/Chest Respiratory/Chest: Reports as per HPI; Denies cough or dyspnea Gastrointestinal Gastrointestinal: Reports nausea and vomiting; Denies abdominal pain or diarrhea Genitourinary Genitourinary ED: Denies dysuria or hematuria Musculoskeletal Musculoskeletal: Denies back pain or neck pain Integumentary Denies abscess or rash Neurologic Neurologic: Denies headache(s), paresthesias or weakness Psychiatric Psychiatric: Denies anxiety or suicidal thoughts EXAM Physical Exam Const Vital Signs: 05/19/24 20:33 05/19/24 20:38 05/19/24 21:52 Temperature 98.6 F 98.6 F Temperature Source Oral Pulse Rate 76 64 Respiratory Rate 16 16 Respiratory Effort Normal Non-Labored Respiratory Pattern Normal Blood Pressure 105/62 105/60 Blood Pressure Mean 76 75 Pulse Ox 97 98 Oxygen Delivery Method Room Air Positive well nourished and well developed General Appearance ED: well developed and NAD HEENT Reports moist mucous membranes normocephalic and atraumatic Eyes PERRL and EOMs intact bilaterally Neck full ROM and supple Resp normal respiratory effort and clear to auscultation bilaterally Effort and Inspection: able to speak in complete sentences Back/Spine General Back: other FROM Extremity normal to inspection General Extremety ED: Negative for edema or pulses abnormal General Extremity: Negative for edema or pulses abnormal Neuro oriented x3, CN's II-XII intact bilaterally and no sensory deficits noted Sensorium / Orientation: awake and alert Motor Exam: strength 5/5 throughout Psych mental status grossly normal Skin no rashes or lesions noted and no wounds MDM MDM MDM Narrative Medical decision making narrative: Patient given an oral fluid challenge and she is swallowing liquids without any discomfort or trouble or vomiting now. Reassured will given a prescription for pantoprazole, she already has a GI doctor and has already requested an appointment, so she will follow-up with them by telephone tomorrow for follow-up appointment. Given appropriate discharge instructions to avoid eating meats for now. Discharge Plan Triage Chief Complaint: Foreign Body ED Provider: Jesse Quiroz Dx/Rx/DC Orders Clinical Impression: Food impaction of esophagus Instructions: ED Esophageal Foreign Body, Resolved Prescriptions: New pantoprazole 40 mg tablet,delayed release (DR/EC) 40 mg PO DAILY Qty: 14 0RF Continued buspirone 5 mg Tablet 5 mg PO TID azelastine 137 mcg (0.1 %) aerosol,spray 2 spray intranasal BID Qty: 30 0RF Rx Instructions: administer into each nostril ascorbic acid (vitamin C) [Vitamin C With Chelsea Hips] 500 mg tablet 500 mg PO DAILY cholecalciferol (vitamin D3) 1,250 mcg (50,000 unit) capsule 1,250 mcg PO DAILY ferrous sulfate 325 mg (65 mg iron) tablet 325 mg PO DAILY fluoxetine 40 mg capsule 40 mg PO DAILY Discontinued omeprazole 40 mg Capsule,Delayed Release(Dr/Ec) 40 mg PO DAILY amoxicillin-pot clavulanate 875-125 mg tablet 1 tab PO BID Qty: 20 0RF Primary Care Provider: Larissa Burns NP Referrals: Doctor,Your [Non-Staff] - As soon as possible (your GI doctor) Print Language: Maldivian Disposition Disposition: Home, Self Care
[2024-05-19 21:52] VITALS: BP 105/60; PULSE 64; RESP 16; TEMP 37; O2SAT 98
== END 2024-05-19 22:14 | disposition home or self-care (01) ==
PROVIDERS: Emergency Provider Emergency Medicine; PCP Registered Nurse; Visit Provider Emergency Medicine
DX: T18.128A Food in esophagus causing other injury, initial encounter (principal); W44.F3XA Food entering into or through a natural orifice, initial encounter; Z79.899 Other long term (current) drug therapy
CPT/HCPCS: 99282